=== PATIENT | female | born 1945 | race Caucasian/White ===

== ENCOUNTER → 2016-11-06 | Outpatient (CLI) | payer MEDICARE, OTHER ==
[~2016-11-06] MED LIST: ACET-704 PO; ALPR0.5T PO; CALC-450 PO; L.AC1CAP6 PO; LINA145C PO; LISI-338 PO; LOSA50TA6 PO; LUBI8CAP3 PO; LYSI500T3 PO; MAGN200T PO; META800T21 PO; MULT-658 PO
--- NOTE | 2016-11-06 12:29 | KCIC ---
PROCEDURE MR of the right shoulder HISTORY Right shoulder pain and weakness. Tingling. COMPARISON None Technique: Routine multiplanar sequences are obtained. FINDINGS Acromioclavicular joint is mildly degenerative. There is diffuse rotator cuff tendinosis with increased signal. Mild tendon thickening. Trace fluid in the subdeltoid bursa. No evidence of a measurable rotator cuff tear. Mild fluid in the subdeltoid bursa. Small glenohumeral joint effusion. There is some thickening and blunting of the superior labrum compatible with degenerative tear. Biceps tendinosis without rupture or dislocation. No evidence of acute articular cartilage defect or advanced chondromalacia. No evidence of HAGL lesion. No bone lesion or acute fracture. No acute soft tissue injury. IMPRESSION 1. Rotator cuff tendinosis without evidence of a tear. 2. Some degenerative tear of the superior labrum. 3. Biceps tendinosis. Electronically signed by: Singh Feliciano MD (Nov 06, 2016 12:28:22)
== END | disposition home or self-care (01) ==
LOC: KCIC MRI 11:14
PROVIDERS: ATTEND Orthopaedic Surgery
DX: M25.511 Pain in right shoulder (principal)
CPT/HCPCS: 73221